=== PATIENT | male | born 1950 | race Caucasian/White ===

== ENCOUNTER → 2017-11-28 | Outpatient (CLI) | payer MEDICARE, BC | LOC: GMAJ 11:44 | PROVIDERS: ATTEND Family Medicine | DX: I10 Essential (primary) hypertension (principal); Z12.5 Encounter for screening for malignant neoplasm of prostate | CPT/HCPCS: 84443; G0103 ==

== ENCOUNTER → 2018-04-20 | Outpatient (CLI) | payer MEDICARE, OTHER ==
--- NOTE | 2018-04-20 14:10 | MRI ---
EXAM DESCRIPTION: Lumbar Spine w/o Contrast : Magnetic Resonance Imaging. CLINICAL HISTORY: SPINAL STENOSIS COMPARISON: None. TECHNIQUE: Multiplanar, multiple standard sequences, non contrast MRI, lumbar spine. FINDINGS: L5-S1: Disc space maintained. Normal signal in the disc. Trace anterolisthesis. Minimal arthrosis right facet. Moderate right foraminal narrowing mild left foraminal narrowing and canal is patent. L4-5: Disc desiccation and posterior disc space narrowing with no bulging. Bilateral mild foraminal narrowing more on the right. Right facet arthrosis, and bilateral L5 pars spondylolysis with more fragmentation and more reactive hypertrophy on the right. Marrow edema also noted around the defect. No spondylolisthesis. Canal is patent. L3-4: Disc desiccation and minimal disc space loss posteriorly with Schmorl's nodes both endplates and reactive edema around the inferior Schmorl's node. No significant disc bulging. Minimal ligament hypertrophy and facet arthrosis with mild canal narrowing. Mild bilateral foraminal narrowing. Well-circumscribed bright T1 and T2 signal in the superior posterior L3 vertebral body. L2-3: Normal signal in the disc and normal width of the disc space. No bulging. Posterior elements unremarkable. Congenitally shortened pedicles bilaterally with mild canal narrowing. Mild bilateral foraminal narrowing. L1-2: Disc space loss and desiccation of the disc. Schmorl's nodes both endplates with marrow edema. No disc bulging. Canal and foramina patent. Circumscribed bright T1 and T2 signal in the left L1 vertebral body and lamina. T12-L1: Disc space maintained with minimal disc desiccation. Anterior Modic type II endplate reactive changes with anterior disc and spur bulging. Tiny posterior disc bulge with minimal right facet arthrosis and flavum ligament hypertrophy. Canal and foramina are patent. Conus terminates at this level. T11-12 anterior disc bulge and spur formation with no posterior disc bulge and bilateral foramina are patent. No scoliosis. Paravertebral soft tissues paraspinal muscle atrophy.. Normal marrow signal in the remaining vertebral bodies and the posterior elements. Vertebral bodies are not compressed at any level. IMPRESSION: 1. 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 Trace L5-S1 anterolisthesis but no spondylolisthesis at L4-5. 2. Schmorl's nodes L3-4. Anterior endplate with minimal depression of the superior endplate but no significant disc bulge. Hemangioma L3 vertebral body. 3. Reactive Schmorl's nodes at the L1-L2 disc space but no significant disc bulging. Canal and foramina are patent. Hemangioma L1 vertebral body. 4. Anterior spondylosis at T12-L1 with tiny posterior disc bulge. Electronically signed by: Jai Guadarrama MD 04/20/2018 2:09 PM CDT
== END ==
LOC: MRI 07:04
PROVIDERS: ATTEND Family Medicine
DX: M48.062 Spinal stenosis, lumbar region with neurogenic claudication (principal); M51.46 Schmorl's nodes, lumbar region

== ENCOUNTER → 2019-06-06 | Outpatient (CLI) | payer MEDICARE, OTHER ==
--- NOTE | 2019-06-06 14:59 | MRI ---
EXAM DESCRIPTION: Shoulder,Right CLINICAL HISTORY: 68 years, Male, RIGHT SHOULDER PAIN. Constant stiffness and soreness. COMPARISON: None TECHNIQUE: MRI of the right shoulder was performed with multiplanar multi sequence imaging without intravenous contrast. FINDINGS: Rotator tendons: Moderate supraspinatus tendinosis with low signal along the anterior leading edge which likely represent crystalline deposition/hydroxyapatite deposition. Moderate infraspinatus and subscapularis tendinosis. Mild partial-thickness articular surface tears of the anterior supraspinatus tendon with associated delaminating component extending to the myotendinous junction. Mild partial-thickness articular surface tear of the infraspinatus tendon posterior fibers. Mild infraspinatus and subscapularis tendinosis. The teres minor tendon is intact. Rotator muscles: No significant rotator cuff muscle atrophy. Glenoid labrum: Limited evaluation of the labrum demonstrate mild circumferential degenerative labral tears. Acromion: The acromion morphology is type one. Moderate right acromioclavicular joint osteoarthrosis with mild capsular hypertrophy. Bone and joints: Mild right glenohumeral joint osteoarthrosis with small marginal osteophyte formation. Subchondral cystic changes about the superolateral humeral head. There is diffuse humeral head articular cartilage thinning. No focal bone marrow contusion or fracture. Biceps tendon: Normal course and morphology of the biceps tendon long head within the bicipital groove. The biceps labral anchor appears intact. Mild fluid distention of the biceps tendon sheath. Soft tissues: No solid or cystic mass is seen. IMPRESSION: 1. Partial-thickness supraspinatus (with concealed delamination component) and infraspinatus tears. No full-thickness rotator cuff tear or tendon retraction. 2. Moderate supraspinatus tendinosis likely with calcific tendinosis. Mild infraspinatus and subscapularis tendinosis. 3. Degenerative tearing of the glenoid labrum. 4. Mild right glenohumeral joint osteoarthrosis. 5. Moderate acromioclavicular joint osteoarthrosis and small lateral subacromial enthesophyte can be a cause for external impingement on the rotator cuff. Mild subacromial/subdeltoid bursitis. Electronically signed by: Kyle Cage DO 06/06/2019 2:58 PM CDT
== END ==
LOC: MRI 10:02
PROVIDERS: ATTEND Anesthesiology
DX: M75.101 Unspecified rotator cuff tear or rupture of right shoulder, not specified as traumatic (principal); M65.821 Other synovitis and tenosynovitis, right upper arm; M19.011 Primary osteoarthritis, right shoulder; M71.811 Other specified bursopathies, right shoulder; M47.817 Spondylosis without myelopathy or radiculopathy, lumbosacral region; M51.36 Other intervertebral disc degeneration, lumbar region; Z68.39 Body mass index [BMI] 39.0-39.9, adult

== ENCOUNTER → 2020-08-25 | Outpatient (CLI) | payer MEDICARE, OTHER | LOC: GMAL 15:11 | PROVIDERS: ATTEND Family Medicine | DX: Z12.5 Encounter for screening for malignant neoplasm of prostate (principal) ==